=== PATIENT | male | born 1940 | race Caucasian/White ===

== ENCOUNTER 2018-05-09 15:44 | Emergency (ER) | payer MEDICARE, OTHER ==
[~2018-05-09] VITALS: Ht 188 cm; Wt 88.0 kg
[2018-05-09] MEDS ORDERED: LIDOCAINE HCL 1% 20ML VIAL (Pyxis) INJ INFIL ONE (16:45)
[2018-05-09] MEDS ORDERED: TETANUS, DIPHTHERIA, PERTUSSIS VAC/PF 0.5ML (>7YR OLD) IM ONE (16:45)
[2018-05-09] MEDS ORDERED: LIDOCAINE HCL/PF 1% 10 MG/ML 5ML VIAL IJ ONE (17:00)
[2018-05-09] MEDS ORDERED: BACITRACIN ZINC OINT UDPKT TOP ONE (19:30)
[2018-05-09 20:05] VITALS: BP 139/85
== END 2018-05-09 20:07 | disposition home or self-care (01) ==
LOC: ER 15:44
DX: S61.411A Laceration without foreign body of right hand, initial encounter (principal); Z90.89 Acquired absence of other organs; W45.0XXA Nail entering through skin, initial encounter; Y93.F2 Activity, caregiving, lifting; Y92.098 Other place in other non-institutional residence as the place of occurrence of the external cause; Y99.8 Other external cause status
CPT/HCPCS: 12001; 90471; 90715; 99283; J3490

== ENCOUNTER 2020-07-28 07:13 | Inpatient (IN) | payer OTHER ==
[~2020-07-28] VITALS: Ht 177.8 cm; Wt 84.8 kg
[2020-07-28] MEDS ORDERED: ACETAMINOPHEN 325MG TABLET PO STA (07:31)
[2020-07-28 07:57] LABS: BASOPHILS % 0.4 % (0.0-2.0); HEMATOCRIT. 40.4 % (42.0-52.0); HEMOGLOBIN. 14.2 g/dL (14.0-18.0); LYMPHOCYTES % 12.5 % (20.0-50.0); MEAN CORPUSCULAR VOLUME 93.9 fL (80.0-94.0); MEAN PLATELET VOLUME 8.2 fl (7.4-10.4); MONOCYTES % 6.6 % (2.0-8.0); NEUTROPHILS % 80.5 % (40.0-76.0); PLATELET 169 x1000/uL (130-400); RED CELL DISTRIBUTION WIDTH 12.5 % (11.6-14.6)
[2020-07-28 08:03] LABS: INR 1.1; PROTHROMBIN TIME 11.9 sec (9.6-11.0)
[2020-07-28 08:06] LABS: CHLORIDE 101 mEq/L (98-107)
[2020-07-28 08:15] LABS: CREATINE KINASE 302 IU/L (39-308)
[2020-07-28 08:30] LABS: CLARITY URINE CLEAR (CLEAR); COLOR URINE DARK YELLOW (YELLOW); KETONES URINE 1+ (NEGATIVE); LEUKOCYTE ESTERASE URINE 2+ (NEGATIVE); NITRITE URINE NEGATIVE (NEGATIVE); OCCULT BLOOD URINE 1+ (NEGATIVE); PROTEIN URINE 1+ (NEGATIVE); SPECIFIC GRAVITY URINE 1.019 (1.005-1.030)
[2020-07-28] MEDS ORDERED: CEFTRIAXONE 1 G PREMIX 50 ML IV ONE (09:00)
[2020-07-28] MEDS ORDERED: LEVOFLOXACIN 500MG PREMIX 100 ML IV ONE (09:00)
[2020-07-28] MEDS ORDERED: CLONIDINE 0.1MG TABLET PO PRN (11:00)
[2020-07-28] MEDS ORDERED: ACETAMINOPHEN 650MG/20.3ML UDC GT PRN (11:00)
[2020-07-28] MEDS ORDERED: NA PHOS,M-B/NA PHOS,DI-BA ENEMA 118ML PR PRN (11:00)
[2020-07-28] MEDS ORDERED: ONDANSETRON HCL 4MG/2ML INJ IV PRN (11:00)
[2020-07-28] MEDS ORDERED: AZITHROMYCIN 500 MG in DEXT 5% WATER 250 ML IV SCH (11:00)
[2020-07-28] MEDS ORDERED: DIPHENHYDRAMINE 50MG/ML VIAL IV PRN (11:00)
[2020-07-28] MEDS ORDERED: GUAIFENESIN 200MG/10ML SUGAR FREE UDC PO PRN (11:00)
[2020-07-28] MEDS ORDERED: CEFTRIAXONE 1 G PREMIX 50 ML IV SCH (11:00)
[2020-07-28] MEDS ORDERED: MAGNESIUM/ALUMINUM HYDROXIDE/SIMETHICONE 30ML UDC PO PRN (11:00)
[2020-07-28] MEDS ORDERED: DOCUSATE SODIUM 100MG CAPSULE PO PRN (11:00)
[2020-07-28] MEDS: ENOXAPARIN 40MG/0.4ML SYR SUBCUT SCH (12:55)
[2020-07-28 13:45] VITALS: BP_SYST 113; BP_SYST 167; BP_DIAS 61
[2020-07-28 15:47] LABS: T4 FREE 1.17 ng/dL (0.76-1.46)
[2020-07-28 16:00] VITALS: BP 185/57
[2020-07-28 20:00] VITALS: BP 137/76
[2020-07-28] MEDS: ACETAMINOPHEN 325MG TABLET PO PRN (20:28)
[2020-07-29] VITALS: BP 112/52
[2020-07-29 00:15] LABS: CREATINE KINASE MB FRACTION 3.3 ng/mL (0.5-3.6)
[2020-07-29 04:00] VITALS: BP 115/58
[2020-07-29 08:00] VITALS: BP 117/67
[2020-07-29] MEDS: ACETAMINOPHEN 325MG TABLET PO PRN (08:05)
[2020-07-29 09:11] LABS: BASOPHILS % 0.4 % (0.0-2.0); HEMATOCRIT. 36.8 % (42.0-52.0); HEMOGLOBIN. 13.1 g/dL (14.0-18.0); LYMPHOCYTES % 11.3 % (20.0-50.0); MEAN CORPUSCULAR HEMOGLOBIN 33.3 pg (28.0-32.0); MEAN CORPUSCULAR VOLUME 93.7 fL (80.0-94.0); MONOCYTES % 6.9 % (2.0-8.0); NEUTROPHILS % 81.4 % (40.0-76.0); PLATELET 135 x1000/uL (130-400); RED BLOOD CELL COUNT 3.93 mill/uL (4.7-6.1); RED CELL DISTRIBUTION WIDTH 12.4 % (11.6-14.6)
[2020-07-29] MEDS: CEFTRIAXONE 1,000 MG in DEXTROSE 5% WATER 50 ML IV SCH (09:28)
[2020-07-29 09:34] LABS: CHLORIDE 99 mEq/L (98-107)
[2020-07-29 09:45] LABS: LDL CHOLESTEROL 66 mg/dL (5-100)
[2020-07-29 09:46] LABS: HDL CHOLESTEROL 41 mg/dL (40-59)
[2020-07-29 12:00] VITALS: BP 109/69
[2020-07-29] MEDS: ENOXAPARIN 40MG/0.4ML SYR SUBCUT SCH (12:31)
[2020-07-29] MEDS: AZITHROMYCIN 500 MG in DEXT 5% WATER 250 ML IV SCH (13:58)
[2020-07-29 15:55] VITALS: BP 115/62
[2020-07-29] MEDS ORDERED: IOHEXOL-350 100 ML BOTTLE ONE (16:49)
[2020-07-29] MEDS: SODIUM CHLORIDE 0.45% 1,000 ML IV SCH (18:46)
[2020-07-29 20:35] VITALS: BP 150/76
[2020-07-30 00:24] VITALS: BP 124/58
[2020-07-30] MEDS: ACETAMINOPHEN 325MG TABLET PO PRN ×2 (00:27→08:17)
[2020-07-30 04:00] VITALS: BP 120/73
[2020-07-30 08:00] VITALS: BP 122/84
[2020-07-30] MEDS: CEFTRIAXONE 1,000 MG in DEXTROSE 5% WATER 50 ML IV SCH (08:15)
[2020-07-30] MEDS: SODIUM CHLORIDE 0.45% 1,000 ML IV SCH ×2 (08:16→21:25)
[2020-07-30 12:00] VITALS: BP 119/78
[2020-07-30] MEDS ORDERED: MAGNESIUM 2 G PREMIX 50 ML IV SCH (12:00)
[2020-07-30] MEDS: ENOXAPARIN 40MG/0.4ML SYR SUBCUT SCH (12:11)
[2020-07-30 15:31] LABS: BASOPHILS % 0.6 % (0.0-2.0); EOSINOPHILS % 0.8 % (0.0-5.0); HEMATOCRIT. 39.9 % (42.0-52.0); HEMOGLOBIN. 13.9 g/dL (14.0-18.0); LYMPHOCYTES % 16.8 % (20.0-50.0); MEAN CORPUSCULAR HEMOGLOBIN 33.1 pg (28.0-32.0); MEAN PLATELET VOLUME 8.3 fl (7.4-10.4); MONOCYTES % 11.3 % (2.0-8.0); NEUTROPHILS % 70.5 % (40.0-76.0); PLATELET 149 x1000/uL (130-400); RED CELL DISTRIBUTION WIDTH 12.6 % (11.6-14.6)
[2020-07-30 15:57] LABS: CHLORIDE 104 mEq/L (98-107)
[2020-07-30 16:00] VITALS: BP 146/95
[2020-07-30] MEDS: AZITHROMYCIN 500 MG in DEXT 5% WATER 250 ML IV SCH (17:30)
[2020-07-30] MEDS: CEFAZOLIN 500 MG in DEXTROSE 5% WATER 50 ML IV SCH ×2 (17:30→22:49)
[2020-07-30 20:00] VITALS: BP_SYST 112; BP_SYST 138; BP_SYST 151; BP_DIAS 75; BP_DIAS 80; BP_DIAS 90
[2020-07-30] MEDS ORDERED: IOHEXOL-300 100 ML BOTTLE ONE (21:06)
[2020-07-31] VITALS: BP 139/76
[2020-07-31 04:00] VITALS: BP 135/74
[2020-07-31] MEDS: CEFAZOLIN 500 MG in DEXTROSE 5% WATER 50 ML IV SCH (06:16)
[2020-07-31] MEDS: ACETAMINOPHEN 325MG TABLET PO PRN ×2 (07:24→22:35)
[2020-07-31 08:00] VITALS: BP 125/73
[2020-07-31] MEDS ORDERED: REGADENOSON 0.4 MG/5 ML IV NR (08:45)
[2020-07-31] MEDS: SODIUM CHLORIDE 0.45% 1,000 ML IV SCH (11:41)
[2020-07-31] MEDS: ENOXAPARIN 40MG/0.4ML SYR SUBCUT SCH (11:50)
[2020-07-31 12:00] VITALS: BP_SYST 124; BP_SYST 130; BP_DIAS 69; BP_DIAS 76; BP_DIAS 86
[2020-07-31] MEDS ORDERED: REGADENOSON 0.4 MG/5 ML IV ONE (12:49)
[2020-07-31] MEDS: CEFAZOLIN 1000MG PREMIX 50 ML IV SCH ×2 (14:39→22:19)
[2020-07-31] MEDS: AZITHROMYCIN 500 MG in DEXT 5% WATER 250 ML IV SCH (15:39)
[2020-07-31 16:00] VITALS: BP 141/82
[2020-07-31 16:34] LABS: CHLORIDE 104 mEq/L (98-107)
[2020-07-31 16:35] LABS: BASOPHILS % 0.4 % (0.0-2.0); EOSINOPHILS % 1.6 % (0.0-5.0); HEMATOCRIT. 42.8 % (42.0-52.0); HEMOGLOBIN. 14.7 g/dL (14.0-18.0); LYMPHOCYTES % 20.6 % (20.0-50.0); MEAN CORPUSCULAR HEMOGLOBIN 32.6 pg (28.0-32.0); MEAN CORPUSCULAR VOLUME 94.9 fL (80.0-94.0); MEAN PLATELET VOLUME 8.7 fl (7.4-10.4); MONOCYTES % 11.6 % (2.0-8.0); NEUTROPHILS % 65.8 % (40.0-76.0); PLATELET 188 x1000/uL (130-400); RED BLOOD CELL COUNT 4.51 mill/uL (4.7-6.1); RED CELL DISTRIBUTION WIDTH 12.5 % (11.6-14.6)
[2020-07-31 20:00] VITALS: BP 146/87
[2020-08-01] VITALS: BP 137/78
[2020-08-01] MEDS: SODIUM CHLORIDE 0.45% 1,000 ML IV SCH ×2 (02:59→14:17)
[2020-08-01 04:00] VITALS: BP_SYST 122; BP_SYST 150; BP_DIAS 75; BP_DIAS 82
[2020-08-01] MEDS: CEFAZOLIN 1000MG PREMIX 50 ML IV SCH ×2 (05:27→14:16)
[2020-08-01] MEDS ORDERED: GENTAMICIN/NS IRRIGATION 500 ML IR ONE (07:45)
[2020-08-01] MEDS ORDERED: IODIXANOL 320MG/ML 100 ML BOTTLE IV ONE (07:45)
[2020-08-01] MEDS ORDERED: LIDOCAINE HCL 1% 20ML VIAL (Pyxis) INJ ONE (07:45)
[2020-08-01] MEDS ORDERED: GENTAMICIN SULF 40MG/ML 2ML VIAL ONE (07:45)
[2020-08-01 08:00] VITALS: BP 150/85
[2020-08-01] MEDS ORDERED: LEVO500T2 MT (11:45)
[2020-08-01 12:00] VITALS: BP 155/91
[2020-08-01] MEDS: AZITHROMYCIN 500 MG in DEXT 5% WATER 250 ML IV SCH (15:21)
[2020-08-01 16:00] VITALS: BP 149/98
[2020-08-01] MEDS ORDERED: APIXABAN 5 MG TABLET PO NR (16:00)
[2020-08-01 17:40] VITALS: BP 149/98
== END 2020-08-01 18:34 | disposition home health service (06) | DRG 871 ==
LOC: ER 07:13 → 7WST 10:49 → EDBEDREQSVC 12:16 → ENRESERV 12:59 → 7WST 18:27 → 5WST 07-30 10:30
PROVIDERS: ADMIT Family Medicine; ATTEND Family Medicine
DX: A41.9 Sepsis, unspecified organism (principal); J18.9 Pneumonia, unspecified organism; N39.0 Urinary tract infection, site not specified; I48.91 Unspecified atrial fibrillation; Z20.828 Contact with and (suspected) exposure to other viral communicable diseases; R55 Syncope and collapse; D35.02 Benign neoplasm of left adrenal gland; D72.810 Lymphocytopenia; I44.30 Unspecified atrioventricular block; I45.10 Unspecified right bundle-branch block; I49.5 Sick sinus syndrome; C61 Malignant neoplasm of prostate; B96.20 Unspecified Escherichia coli [E. coli] as the cause of diseases classified elsewhere; K57.30 Diverticulosis of large intestine without perforation or abscess without bleeding; Z90.79 Acquired absence of other genital organ(s); Z90.49 Acquired absence of other specified parts of digestive tract; Z85.46 Personal history of malignant neoplasm of prostate; Z90.89 Acquired absence of other organs; Z79.899 Other long term (current) drug therapy
CPT/HCPCS: 36415; 70551; 71045; 71275; 73130; 74177; 78452; 80053; 80061; 81003; 82550; 82553; 83036; 83605; 83735; 83880; 84145; 84153; 84439; 84443; 84484; 85025; 85379; 87077; 87186; 87635; 93005; 93017; 93306; 93880; 93970; 95816; 97162; 99291; A9500; J0456; J0690; J0696; J1580; J1650; J1956; J2785; J3475; J3490; J7060; Q9967; G0103